=== PATIENT | male | born 1990 | race Caucasian/White ===

== ENCOUNTER 2021-08-01 05:20 | Emergency (ER) | payer OTHER ==
[~2021-08-01] VITALS: Ht 180.3 cm; Wt 72.6 kg
[2021-08-01 05:27] VITALS: BP 125/65
--- NOTE | 2021-08-01 06:49 | NUR ---
PATIENT CLEARED FOR DISHCARGE AT THIS TIME. ADVISED TO FOLLOW UP WITH PCP AND RELEASED INTO PD CUSTODY WITH NO FURTEHR QUESTIONS FOLLOWING DISCHARGE TEACHING.
[2021-08-01 06:51] VITALS: BP 118/74
== END 2021-08-01 06:49 ==
LOC: MED 05:20
DX: R07.9 Chest pain, unspecified (principal); Z02.89 Encounter for other administrative examinations; V49.9XXA Car occupant (driver) (passenger) injured in unspecified traffic accident, initial encounter; Y93.89 Activity, other specified; Y92.411 Interstate highway as the place of occurrence of the external cause; Y99.8 Other external cause status
CPT/HCPCS: 99284